=== PATIENT | female | born 1975 | race Caucasian/White ===

== ENCOUNTER → 2016-08-16 | Outpatient (CLI) | payer OTHER | LOC: KOH-I 10:27 | DX: M54.5 Low back pain (principal); M51.36 Other intervertebral disc degeneration, lumbar region; M47.816 Spondylosis without myelopathy or radiculopathy, lumbar region; M99.73 Connective tissue and disc stenosis of intervertebral foramina of lumbar region | CPT/HCPCS: 72148 ==

== ENCOUNTER 2021-12-18 20:36 | Emergency (ER) | payer OTHER ==
[~2021-12-18 20:36] MED LIST: AUGMENTIN 875-1 EACH PO; FLOMAX0.4 MG PO; NORCO 5-325 TA1 EACH PO; PERCOCET 5/325 T1 EA PO; TORADOL 10 MG T10 MG PO; ZOFRAN ODT 4 MG4 MG PO; ZOFRAN4 MG PO
[2021-12-18 21:47] LABS: RED BLOOD COUNT 4.73 M/UL (4.00-5.10); WHITE BLOOD COUNT 10.8 K/UL (4.5-11.0)
[2021-12-18 22:24] LABS: BUN/CREATININE RATIO 21 (0-10)
== END 2021-12-19 00:10 | disposition home or self-care (01) ==
LOC: ER1 20:36
PROVIDERS: Nurse Practitioner
DX: R10.9 Unspecified abdominal pain (principal); R10.819 Abdominal tenderness, unspecified site; I10 Essential (primary) hypertension; Z87.442 Personal history of urinary calculi; Z90.89 Acquired absence of other organs
CPT/HCPCS: 80053; 81001; 85025; 87086; 99284